=== PATIENT | male | born 2000 | race Caucasian/White ===

== ENCOUNTER 2022-04-26 14:35 | Emergency (ER) | payer SELFPAY ==
[2022-04-26 16:07] LABS: PTT,PARTIAL THROMBOPLSTIN TIME 28.9 SEC (22.0-34.0)
[2022-04-26 16:29] LABS: ANION GAP 11.6 mEq/L (7-13)
[2022-04-26] MEDS ORDERED: Ketorolac 30 MG/ML SDV IVPUSH ONE (17:32)
[2022-04-26 19:17] LABS: AMPHETAMINES,URINE NEGATIVE (NEGATIVE); BARBITURATES,URINE NEGATIVE (NEGATIVE); BENZODIAZEPINE,URINE NEGATIVE (NEGATIVE); MDMA (ECSTASY), URINE NEGATIVE (NEGATIVE); METHADONE,URINE NEGATIVE (NEGATIVE); METHAMPHETAMINES,URINE NEGATIVE (NEGATIVE); OPIATES,URINE NEGATIVE (NEGATIVE); OXYCODONE,URINE NEGATIVE (NEGATIVE); PHENCYCLIDINE,URINE NEGATIVE (NEGATIVE); TCA,URINE NEGATIVE (NEGATIVE)
== END 2022-04-26 20:25 | disposition home or self-care (01) ==
LOC: DL.ED 14:35
DX: U07.1 COVID-19 (principal)
CPT/HCPCS: 36415; 70450; 74176; 80053; 80305-QW; 81001; 82607; 83605; 83735; 84443; 84484; 85025; 85610; 85730; 86140; 93005; 93010; 96374; 99284; 99285-25; J1885; U0002

== ENCOUNTER 2022-07-14 07:56 | Emergency (ER) | payer SELFPAY ==
[2022-07-14 09:01] LABS: RESPIRATORY SYNCYTIAL VIR NAA NEGATIVE (NEGATIVE)
[2022-07-14 09:16] LABS: CORONAVIRUS COVID-19 NAA POSITIVE (NEGATIVE)
== END 2022-07-14 09:44 | disposition home or self-care (01) ==
LOC: DL.ED 07:56
DX: U07.1 COVID-19 (principal); Z86.16 Personal history of COVID-19
CPT/HCPCS: 0241U; 99283

== ENCOUNTER 2022-07-20 12:32 | Emergency (ER) | payer SELFPAY | END 2022-07-20 15:06 | disposition left against medical advice (07) | LOC: DL.ED 12:32 | DX: Z53.21 Procedure and treatment not carried out due to patient leaving prior to being seen by health care provider (principal) | CPT/HCPCS: 87081; 87430 ==

== ENCOUNTER 2023-02-13 09:29 | Emergency (ER) | payer SELFPAY ==
[2023-02-13] MEDS ORDERED: HYDROmorphone 1 MG/ML Syringe IM ONE (09:39)
[2023-02-13] MEDS ORDERED: Ondansetron 4 MG Tab.DIS PO ONE (09:40)
== END 2023-02-13 11:53 | disposition home or self-care (01) ==
LOC: DL.ED 09:29
DX: K40.30 Unilateral inguinal hernia, with obstruction, without gangrene, not specified as recurrent (principal); Z86.16 Personal history of COVID-19
CPT/HCPCS: 96372; 99282; 99283; A9270-GY; J1170

== ENCOUNTER 2023-02-18 12:45 | Emergency (ER) | payer SELFPAY ==
[2023-02-18] MEDS ORDERED: Sodium Chloride 0.9% 10 ML Syringe FLUSH PRN (13:09)
[2023-02-18] MEDS ORDERED: Ondansetron 4 MG/2 ML SDV IVPUSH ONE (13:09)
[2023-02-18] MEDS ORDERED: HYDROmorphone 0.5 MG/0.5 ML Syringe IVPUSH ONE (13:09)
[2023-02-18 13:19] LABS: BASOPHILS PERCENT AUTO 0.5 % (0.0-1.0); EOSINOPHILS PERCENT AUTO 1.7 % (1.0-3.0); HEMATOCRIT 44.3 % (40.0-54.0); HEMOGLOBIN 15.3 g/dL (14.0-18.0); LYMPHOCYTES PERCENT AUTO 21.9 % (20.5-50.1); MEAN CORPUSCULAR HEMOGLOBIN 28.6 pg (27.0-34.0); MEAN CORPUSCULAR HGB CONC 34.5 g/dL (33.0-35.0); MEAN CORPUSCULAR VOLUME 82.8 fL (80-100); MONOCYTES PERCENT AUTO 7.6 % (2-8); NEUTROPHILS PERCENT AUTO 68.3 % (42.2-75.2); PLATELET COUNT,PLT 248 10^3/uL (150-450); RED BLOOD CELL COUNT 5.35 10^6/uL (4.6-6.2); WHITE BLOOD CELL COUNT,WBC 6.3 10^3/uL (5.0-10.0)
[2023-02-18 13:42] LABS: A/G RATIO 1.2; ALBUMIN 4.1 g/dL (3.4-5.0); ANION GAP 12.8 mEq/L (7-13); BILIRUBIN TOTAL 0.9 mg/dL (0.2-1.0); BUN/CREATININE RATIO 15.6 (No establ ref range); C-REACTIVE PROTEIN 1.2 mg/dL (0.0-0.9); CALCIUM 8.7 mg/dL (8.5-10.1); CREATININE 1.09 mg/dL (0.70-1.30); EST CRCL DRUG DOSING (CG) 118.99 mL/min; POTASSIUM,K 3.8 mmol/L (3.5-5.1); PROTEIN TOTAL,TP 7.4 g/dL (6.4-8.2)
[2023-02-18 13:45] LABS: LACTIC ACID 0.6 mmol/L (0.4-2.0)
[2023-02-18] MEDS ORDERED: Methylnaltrexone 12 MG/0.6 ML SDV SUBCUT ONE (15:19)
[2023-02-18] MEDS ORDERED: Take Home: Acetaminophen/HYDROcodone 325-5 MG, 5 Tab Pack PO ONE (15:25)
== END 2023-02-18 15:31 | disposition home or self-care (01) ==
LOC: DL.ED 12:45
DX: S30.22XA Contusion of scrotum and testes, initial encounter (principal); Z87.891 Personal history of nicotine dependence; Z86.16 Personal history of COVID-19; X50.0XXA Overexertion from strenuous movement or load, initial encounter
CPT/HCPCS: 36415; 76870; 80053; 83605; 85025; 86140; 96372; 96374; 96375; 99284; 99284-25; A9270-GY; J1170; J2212-GY; J2405; J3490